=== PATIENT | male | born 1995 | race Two or more races ===

== ENCOUNTER 2022-01-27 10:37 | Emergency (ER) | payer MEDICAID ==
[~2022-01-27] VITALS: Ht 167.6 cm; Wt 81.8 kg
[2022-01-27 11:03] LABS: BASOPHILS % (AUTO) 0.3 % (0-1); EOSINOPHILS # (AUTO) 0.1 X10'3 (0-0.9); EOSINOPHILS % (AUTO) 0.8 % (0-6); HEMATOCRIT 45.7 % (42.0-52.0); HEMOGLOBIN 15.1 g/dl (14.0-17.9); LYMPHOCYTES # (AUTO) 1.9 X10'3 (1.1-4.8); MEAN CORPUSCULAR HEMOGLOBIN 27.6 PG (27.0-31.0); MEAN CORPUSCULAR VOLUME 83.6 FL (78-98); MONOCYTES # (AUTO) 0.6 X10'3 (0-0.9); MONOCYTES % (AUTO) 6.1 % (2-12); NEUTROPHILS # (AUTO) 6.6 X10'3 (1.8-7.7); NEUTROPHILS % (AUTO) 71.8 % (42-75); PLATELET COUNT 240 X10'3 (140-440); RED BLOOD COUNT 5.47 X10'6 (4.70-6.10); RED CELL DISTRIBUTION WIDTH 13.4 % (11.5-14.5); WHITE BLOOD COUNT 9.2 X10'3 (4.5-11.0)
[2022-01-27 11:54] LABS: ALANINE AMINOTRANSFERASE 91 U/L (12-78); ALBUMIN 4.9 G/DL (3.4-5.0); ALBUMIN/GLOBULIN RATIO 1.4 (1.1-1.5); ALKALINE PHOSPHATASE 71 IU/L (46-116); ASPARTATE AMINO TRANSFERASE 48 U/L (10-37); BILIRUBIN,TOTAL 0.8 MG/DL (0.1-1.0); BLOOD UREA NITROGEN 10 MG/DL (7-18); BUN/CREATININE RATIO 8.3 (5.4-32.0); CALCIUM 9.5 MG/DL (8.5-10.1); GLUCOSE 246 MG/DL (70-104); MAGNESIUM 2.1 MG/DL (1.5-2.4); TOTAL CARBON DIOXIDE 21.4 MMOL/L (24-32); TOTAL PROTEIN 8.5 G/DL (6.4-8.2); eGFR 72 ML/MIN
[2022-01-27 12:57] LABS: ANION GAP 15 (8-16); CHLORIDE 98 MMOL/L (99-107); POTASSIUM 3.4 MMOL/L (3.5-5.1); SODIUM 134 MMOL/L (135-145)
[2022-01-27] MEDS ORDERED: ondansetron/PF 4mg/2ml inj IV ONE (14:15)
[2022-01-27] MEDS ORDERED: normal saline 1000ML IV soln IV ONE (14:15)
[2022-01-27 14:48] LABS: LIPASE 56 U/L (73-393)
[2022-01-27 15:35] LABS: CLARITY,URINE CLEAR (Clear); COLOR,URINE STRAW (Yellow); GLUCOSE, URINE 250 mg/dl (Neg); KETONES,URINE NEGATIVE (Neg); LEUKOCYTE ESTERASE ,URINE NEGATIVE (Neg); NITRITES, URINE NEGATIVE (Neg); OCCULT BLOOD,URINE NEGATIVE (Neg); PH,URINE 7.5 (4.8-8.0); PROTEIN,URINE NEGATIVE (Neg); UROBILINOGEN,URINE 0.2 E.U/dL (0.2-1.0)
[2022-01-27 15:37] LABS: UA COLLECTION TYPE NON-SPECIFIED
[2022-01-27] MEDS ORDERED: acetaminophen 325mg tablet PO ONE (17:05)
[2022-01-27 17:16] VITALS: BP 132/80
== END 2022-01-27 17:17 | disposition home or self-care (01) ==
LOC: ER 10:38
DX: B34.9 Viral infection, unspecified (principal)
CPT/HCPCS: 36415; 71045; 80053; 81003; 83690; 83735; 83880; 84484; 85025; 87502; 87503; 93005; 96360; 99285; J7030

== ENCOUNTER 2022-03-07 18:35 | Emergency (ER) | payer MEDICAID ==
[~2022-03-07] VITALS: Ht 170.2 cm; Wt 80.0 kg
[2022-03-07 18:46] VITALS: BP 122/84
[2022-03-07 18:50] LABS: BASOPHILS % (AUTO) 0.3 % (0-1); EOSINOPHILS % (AUTO) 0.1 % (0-6); HEMATOCRIT 40.9 % (42.0-52.0); HEMOGLOBIN 13.9 g/dl (14.0-17.9); LYMPHOCYTES # (AUTO) 1.4 X10'3 (1.1-4.8); LYMPHOCYTES % (AUTO) 22.4 % (21-51); MEAN CORPUSCULAR HEMOGLOBIN 27.6 PG (27.0-31.0); MEAN CORPUSCULAR VOLUME 81.2 FL (78-98); MEAN PLATELET VOLUME 7.4 FL (7.4-10.4); MONOCYTES # (AUTO) 0.6 X10'3 (0-0.9); MONOCYTES % (AUTO) 10.6 % (2-12); NEUTROPHILS % (AUTO) 66.6 % (42-75); PLATELET COUNT 210 X10'3 (140-440); RED BLOOD COUNT 5.04 X10'6 (4.70-6.10); RED CELL DISTRIBUTION WIDTH 13.4 % (11.5-14.5)
[2022-03-07 19:10] LABS: ALANINE AMINOTRANSFERASE 124 U/L (12-78); ALBUMIN 4.9 G/DL (3.4-5.0); ALBUMIN/GLOBULIN RATIO 1.5 (1.1-1.5); ALKALINE PHOSPHATASE 63 IU/L (46-116); ANION GAP 12 (8-16); ASPARTATE AMINO TRANSFERASE 59 U/L (10-37); BILIRUBIN,TOTAL 0.4 MG/DL (0.1-1.0); BLOOD UREA NITROGEN 7 MG/DL (7-18); BUN/CREATININE RATIO 8.3 (5.4-32.0); CALCIUM 9.1 MG/DL (8.5-10.1); CHLORIDE 102 MMOL/L (99-107); CREATININE 0.84 MG/DL (0.60-1.10); GLUCOSE 97 MG/DL (70-104); MAGNESIUM 2.1 MG/DL (1.5-2.4); POTASSIUM 3.6 MMOL/L (3.5-5.1); SODIUM 138 MMOL/L (135-145); TOTAL CARBON DIOXIDE 24.4 MMOL/L (24-32); TOTAL PROTEIN 8.2 G/DL (6.4-8.2); eGFR > 90 ML/MIN
== END 2022-03-07 19:34 | disposition home or self-care (01) ==
LOC: ER 18:35
DX: R07.89 Other chest pain (principal); F41.9 Anxiety disorder, unspecified; R42 Dizziness and giddiness; R00.0 Tachycardia, unspecified; Z72.89 Other problems related to lifestyle
CPT/HCPCS: 36415; 80053; 83735; 83880; 84484; 85025; 93005; 99284